=== PATIENT | male | born 1960 | race Two or more races ===

== ENCOUNTER 2018-10-25 18:51 | Emergency (ER) | payer SELFPAY ==
[~2018-10-25] VITALS: Ht 180.3 cm; Wt 115.0 kg
[2018-10-25] MEDS ORDERED: TETANUS, DIPHTHERIA, PERTUSSIS VAC/PF 0.5ML (>7YR OLD) IM ONE (21:00)
[2018-10-25] MEDS ORDERED: MORPHINE SULFATE 10 MG/ML CPJ IM ONE (21:00)
[2018-10-25] MEDS ORDERED: LIDOCAINE 1%/EPI 1:100,000 10 ML VIAL IJ ONE (21:00)
[2018-10-25] MEDS ORDERED: BACITRACIN ZINC OINT UDPKT TOP ONE (21:00)
[2018-10-25] MEDS ORDERED: LIDOCAINE HCL/EPINEPHRINE 1%-EPI 1:100,000 20 ML VIAL INFIL ONE (22:00)
[2018-10-25] MEDS ORDERED: HYDROCODONE/ACETAMINOPHEN 5/325MG TABLET PO PRN (23:30)
[2018-10-26 00:59] VITALS: BP 129/80
== END 2018-10-26 01:00 | disposition home or self-care (01) ==
LOC: ER 18:51
DX: S01.81XA Laceration without foreign body of other part of head, initial encounter (principal); S22.42XA Multiple fractures of ribs, left side, initial encounter for closed fracture; S62.607A Fracture of unspecified phalanx of left little finger, initial encounter for closed fracture; F17.200 Nicotine dependence, unspecified, uncomplicated; Y08.02XA Assault by strike by baseball bat, initial encounter; Y93.64 Activity, baseball; Y92.89 Other specified places as the place of occurrence of the external cause; Y99.8 Other external cause status
CPT/HCPCS: 12013; 29125; 70450; 70486; 71045; 71250; 72125; 73140; 90471; 90715; 93005; 96372; 99284; J2270; J3490